=== PATIENT | female | born 2000 | race Caucasian/White ===

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

== ENCOUNTER 2018-02-17 09:04 | Emergency (ER) | END 2018-02-17 10:48 | disposition home or self-care (01) ==

== ENCOUNTER 2018-06-13 15:02 | Emergency (ER) | payer OTHER ==
[~2018-06-13] VITALS: Ht 167.6 cm; Wt 89.0 kg
[~2018-06-13 15:02] MED LIST: DIAZ5TAB PO; HYDR-4011 PO; IBUP-1542 PO; NAPR-985 PO; PANT40TA3 PO
[2018-06-13 15:29] VITALS: Ht 167.6 cm; Wt 89.0 kg
[2018-06-13] MEDS ORDERED: PRED20TA PO (16:41)
--- NOTE | 2018-06-13 16:43 | ERD ---
ER Documentation Chief Complaint Chief Complaint COUGH WITH DIFFIUCLTY CLEARING MUCOID, CHEST WALL PAIN X 5 DAYS HPI 18-year-old female is here complaining of cough since Monday for about 5 days. At that time she had chills and felt warm and now she overall feels better but still has cough that is worse at night and makes it difficult for her to sleep. She is been taking DayQuil and NyQuil which she does say helps a little bit. ROS All systems reviewed and are negative except as per history of present illness. Medications Home Meds Active Scripts Prednisone* (Prednisone*) 20 Mg Tab, 60 MG PO DAILY for 5 Days, TAB Prov:SHRAVAN GREEN PA-C 06/13/18 Diazepam* (Valium*) 5 Mg Tablet, 5 MG PO Q8, #10 TAB Prov:KATHY MILLER 02/17/18 Ibuprofen* (Motrin*) 600 Mg Tab, 600 MG PO Q6, #30 TAB Prov:KATHY MILLER 02/17/18 Hydrocodone/Acetaminophen ([place] 5-325 Tablet) 1 Each Tablet, 1 TAB PO Q8 PRN for PAIN, #12 TAB Prov:DARI TAYLOR MD 10/26/17 Pantoprazole* (Protonix*) 40 Mg Tablet., 40 MG PO DAILY, #20 TAB Prov:BRETT MASON PA-C 04/20/16 Pantoprazole* (Protonix*) 40 Mg Tablet., 40 MG PO DAILY, #20 TAB Prov:BRETT MASON PA-C 04/18/16 Naproxen* (Naprosyn*) 500 Mg Tablet, 500 MG PO BID PRN for PAIN AND/OR INFLAMMATION, #30 TAB Prov:GLENROY SCHAFER PA-C 12/29/15 Ibuprofen* (Ibuprofen*) 600 Mg Tablet, 600 MG PO Q6 for 7 Days, TAB Prov:KATHY MILLER 03/18/15 Allergies Allergies: Coded Allergies: No Known Allergy (Unverified , 06/13/18) PMhx/Soc History of Surgery: No Anesthesia Reaction: No Hx Neurological Disorder: No Hx Respiratory Disorders: Yes (asthma) Hx Cardiac Disorders: No Hx Psychiatric Problems: No Hx Miscellaneous Medical Probl: No Hx Alcohol Use: No Hx Substance Use: No Hx Tobacco Use: No Smoking Status: Never smoker FmHx Family History: No diabetes Physical Exam Vitals Vital Signs Date Temp Pulse Resp B/P (MAP) Pulse Ox O2 O2 Flow FiO2 Time Delivery Rate 06/13/18 98.4 85 18 131/61 100 15:29 (84) Physical Exam INITIAL VITAL SIGNS: Reviewed by me GENERAL: Awake, alert and oriented x 4, well appearing, nontoxic, speaking in full sentences. No acute distress HEAD: Atraumatic NECK: Supple. No masses. Full range of motion. No meningismus. No midline tenderness. EYES: EOMI. PERRL. EAR: No tenderness over the mastoids bilaterally. No exudates in the canals. TMs nonerythematous. NOSE: Normal nose. THROAT: No tonilar erythema or edema. No exudates. Uvula midline. No kissing tonsils. RESPIRATORY: Clear to auscultation bilaterally. Symmetric chest wall rise. No wheezing or rales. No accessory muscle use. Coughing CV: Regular rate and rhythm. No murmurs, rubs, or gallops. ABDOMEN: Soft, non-distended. Nontender. Negative [place]. Negative McBurneys point tenderness. No CVA tenderness bilaterally. No guarding. No rebound. Procedures/MDM Patient is here for bronchitis. I doubt she has pneumonia. She is afebrile well-appearing her lungs are clear. I do not think she requires antibiotics but did get her short course of prednisone. Patient counseled regarding my diagnostic impression and care plan. Prior to discharge all questions answered. Pt agrees with treatment plan and understands strict return precautions. Pt is instructed to follow up with primary care provider within 24-48 hours. Precautionary instructions provided including instructions to return to the ER if not improving or for any worsening or changing symptoms or concerns. Departure Diagnosis: Primary Impression: Cough Condition: Stable Patient Instructions: Bronchitis, No Antibiotic (Adult) Additional Instructions: Call your primary care doctor TOMORROW for an appointment during the next 1-2 days.See the doctor sooner or return here if your condition worsens before your appointment time. SHRAVAN GREEN PA-C Jun 13, 2018 16:43
[2018-06-13 17:03] VITALS: BP 125/59; PULSE 79; RESP 18
== END 2018-06-13 17:06 | disposition home or self-care (01) ==
LOC: FTE 15:02
DX: R05 Cough (principal); J45.909 Unspecified asthma, uncomplicated
CPT/HCPCS: 99283

== ENCOUNTER 2018-10-03 21:25 | Emergency (ER) | payer OTHER ==
[~2018-10-03] VITALS: Ht 162.6 cm; Wt 93.2 kg
[~2018-10-03 21:25] MED LIST changes: +PRED20TA PO
[2018-10-03 21:34] VITALS: Ht 162.6 cm; Wt 93.2 kg
--- NOTE | 2018-10-04 00:11 | ERD ---
ER Documentation Chief Complaint Chief Complaint BARONE and tingling on L side of body x 1 week HPI 18-year-old female, previously healthy, presents the emergency department, complaining of 1 week with persistent headache, described as throbbing, global, 7/10, associated with nausea, dizziness and a tingling sensation in the left upper and lower extremity. The patient denies fever, no chills, no blurry vision, no distal weakness. She reports taking naproxen for the pain without improvement of the symptoms. ROS All systems reviewed and are negative except as per history of present illness. Medications Home Meds Active Scripts Prednisone* (Prednisone*) 20 Mg Tab, 60 MG PO DAILY for 5 Days, TAB Prov:SHRAVAN GREEN PA-C 06/13/18 Diazepam* (Valium*) 5 Mg Tablet, 5 MG PO Q8, #10 TAB Prov:KATHY MILLER 02/17/18 Ibuprofen* (Motrin*) 600 Mg Tab, 600 MG PO Q6, #30 TAB Prov:KATHY MILLER 02/17/18 Hydrocodone/Acetaminophen ([place] 5-325 Tablet) 1 Each Tablet, 1 TAB PO Q8 PRN for PAIN, #12 TAB Prov:DARI TAYLOR MD 10/26/17 Pantoprazole* (Protonix*) 40 Mg Tablet., 40 MG PO DAILY, #20 TAB Prov:BRETT MASON PA-C 04/20/16 Pantoprazole* (Protonix*) 40 Mg Tablet.dr, 40 MG PO DAILY, #20 TAB Prov:BRETT MASON PA-C 04/18/16 Naproxen* (Naprosyn*) 500 Mg Tablet, 500 MG PO BID PRN for PAIN AND/OR INFLAMMATION, #30 TAB Prov:GLENROY SCHAFER PA-C 12/29/15 Ibuprofen* (Ibuprofen*) 600 Mg Tablet, 600 MG PO Q6 for 7 Days, TAB Prov:KATHY MILLER 03/18/15 Allergies Allergies: Coded Allergies: No Known Allergy (Unverified , 06/13/18) PMhx/Soc Medical and Surgical Hx: pt denies Medical Hx, pt denies Surgical Hx History of Surgery: No Anesthesia Reaction: No Hx Neurological Disorder: No Hx Respiratory Disorders: Yes (asthma) Hx Cardiac Disorders: No Hx Psychiatric Problems: No Hx Miscellaneous Medical Probl: No Hx Alcohol Use: No Hx Substance Use: No Hx Tobacco Use: No Smoking Status: Never smoker FmHx Family History: No diabetes, No coronary disease Physical Exam Vitals Vital Signs Date Temp Pulse Resp B/P (MAP) Pulse Ox O2 O2 Flow FiO2 Time Delivery Rate 10/03/18 99.7 106 20 142/73 98 21:34 (96) Physical Exam Const: No acute distress Head: Atraumatic Eyes: Normal Conjunctiva ENT: Normal External Ears, Nose and Mouth. Neck: Full range of motion. No meningismus. Resp: Clear to auscultation bilaterally Cardio: Regular rate and rhythm, no murmurs Abd: Soft, non tender, non distended. Normal bowel sounds Skin: No petechiae or rashes Back: No midline or flank tenderness Ext: No cyanosis, or edema Neur: Awake and alert Psych: Normal Mood and Affect Results 24 hrs Current Medications Medications Dose Sig/[place] Start Time Status Last (Trade) Ordered Route PRN Stop Time Admin Dose Reason Admin 650 mg ONCE ONCE 10/04/18 Acetaminophen PO 00:30 10/04/18 (Tylenol 00:31 Tab) Ibuprofen 600 mg ONCE ONCE 10/04/18 (Motrin) PO 00:30 10/04/18 00:31 Procedures/MDM Differential diagnosis include but not limited to: Classical migraine, sinusitis, visual corrective problems, side effects of medications, dehydration, electrolyte imbalance, endocrine/autoimmune medical condition, stress, anxiety, tension headache. Low suspicion for meningitis, LENS MOUNTER tumor, cerebrovascular event. Physical examination and clinical presentation consistent most likely with tension headache. During the ED course the patient remained stable, no new complaints. Results and clinical impression discussed with patient who agrees with management. The patient is stable to be treated outpatient and will be discharged home, some side effects of prescribed medications (headache, rash, nausea, vomiting, diarrhea, drowsiness, habituation, bleeding, hypertension, interactions with other medications) were reviewed. Follow up with the primary care provider in the next 48h has been recommended. If symptoms persist, worsen or new symptoms develop, then patient should return to the ED immediately. Instructions explained and given directly by me to the patient with acknowledgment and demonstrated understanding. Disclaimer: Inadvertent spelling and grammatical errors are likely due to EHR/dictation software use and do not reflect on the overall quality of patient care. Also, please note that the electronic time recorded on this note does not necessarily reflect the actual time of the patient encounter. Departure Diagnosis: Primary Impression: Headache Condition: Stable Patient Instructions: Self-Care for Headaches Additional Instructions: Thank you very much for allowing us to participate in your care. Your health and safety is our top priority at [facility]. The evaluation in the emergency department has been done to rule out an acute emergency. Chronic, msl-vcea-hjfniigevuq conditions may have not been evaluated; therefore, you need to follow up with a primary care provider in the next 48h. If symptoms persist, worsen or new symptoms develop, then patient should return to the ED immediately. Call your primary care doctor TOMORROW for an appointment during the next 2-4 days and bring all the information provided. Have prescriptions filled and follow precisely the directions on the label. If the symptoms get worse and your provider is unavailable, return to the Emergency Department immediately. DARI TAYLOR MD Oct 04, 2018 00:11
[2018-10-04] MEDS ORDERED: ABCC1C PO (00:17)
[2018-10-04] MEDS: IBUPROFEN 600 MG TAB PO ONE ×2 (00:27→00:30)
[2018-10-04] MEDS ORDERED: ACETAMINOPHEN 325 MG TAB PO ONE (00:30)
[2018-10-04 02:23] VITALS: BP 122/68; PULSE 68; RESP 16
== END 2018-10-04 02:24 | disposition home or self-care (01) ==
LOC: FTE 21:25
DX: R51 Headache (principal); J45.909 Unspecified asthma, uncomplicated
CPT/HCPCS: 70450; 81003; 81025; Z7502; Z7610

== ENCOUNTER 2018-10-27 14:10 | Emergency (ER) | payer OTHER ==
[~2018-10-27] VITALS: Ht 162.6 cm; Wt 94.0 kg
[~2018-10-27 14:10] MED LIST changes: +ABCC1C PO
[2018-10-27 14:12] VITALS: BP 135/82; PULSE 87; RESP 14; Ht 162.6 cm; Wt 94.0 kg
[2018-10-27] MEDS ORDERED: BEN25 PO (14:27)
[2018-10-27] MEDS ORDERED: PRED20TA PO (14:27)
[2018-10-27] MEDS ORDERED: DIPHENHYDRAMINE 25 MG CAP PO ONE (14:30)
[2018-10-27] MEDS ORDERED: predniSONE 20 MG TAB PO ONE (14:30)
--- NOTE | 2018-10-27 14:30 | ERD ---
ER Documentation Chief Complaint Chief Complaint Pt presents with generalized body since yesterday, no SOB reported. HPI 18-year-old female presents with generalized rash and itching on the trunk and extremities. Started yesterday. Patient is working at a summer camp. She was in the pool yesterday. She denies any new known foods, medications, known new exposures. She denies fevers, shortness of breath, additional symptoms. She denies previous allergies. ROS All systems reviewed and are negative except as per history of present illness. Medications Home Meds Active Scripts Prednisone* (Prednisone*) 20 Mg Tab, 40 MG PO DAILY for 3 Days, TAB Prov:PAULA COATS MD 10/27/18 Diphenhydramine Hcl* (Benadryl*) 25 Mg Cap, 25 MG PO Q6, #20 CAP Prov:PAULA COATS MD 10/27/18 Vpupkddmwfexd-Wokjkwhoqf-Ihglcppl-Codeine* (Fioricet w/Codeine*) 325MG-5 [id number] Cap, 1 CAP PO BID PRN for PAIN LEVEL 1-5, #10 CAP Prov:DARI TAYLOR MD 10/04/18 Prednisone* (Prednisone*) 20 Mg Tab, 60 MG PO DAILY for 5 Days, TAB Prov:SHRAVAN GREEN PA-C 06/13/18 Diazepam* (Valium*) 5 Mg Tablet, 5 MG PO Q8, #10 TAB Prov:KATHY MILLER 02/17/18 Ibuprofen* (Motrin*) 600 Mg Tab, 600 MG PO Q6, #30 TAB Prov:KATHY MILLER 02/17/18 Hydrocodone/Acetaminophen ([place] 5-325 Tablet) 1 Each Tablet, 1 TAB PO Q8 PRN for PAIN, #12 TAB Prov:DARI TAYLOR MD 10/26/17 Pantoprazole* (Protonix*) 40 Mg Tablet., 40 MG PO DAILY, #20 TAB Prov:BRETT MASON PA-C 04/20/16 Pantoprazole* (Protonix*) 40 Mg Tablet.dr, 40 MG PO DAILY, #20 TAB Prov:BRETT MASON PA-C 04/18/16 Naproxen* (Naprosyn*) 500 Mg Tablet, 500 MG PO BID PRN for PAIN AND/OR INFLAMMATION, #30 TAB Prov:GLENROY SCHAFER PA-C 12/29/15 Ibuprofen* (Ibuprofen*) 600 Mg Tablet, 600 MG PO Q6 for 7 Days, TAB Prov:KATHY MILLER 03/18/15 Allergies Allergies: Coded Allergies: No Known Allergy (Unverified , 06/13/18) PMhx/Soc History of Surgery: No Anesthesia Reaction: No Hx Neurological Disorder: No Hx Respiratory Disorders: Yes (asthma) Hx Cardiac Disorders: No Hx Psychiatric Problems: No Hx Miscellaneous Medical Probl: No Hx Alcohol Use: No Hx Substance Use: No Hx Tobacco Use: No FmHx Family History: No diabetes, No coronary disease, No other Physical Exam Vitals Vital Signs Date Temp Pulse Resp B/P (MAP) Pulse Ox O2 O2 Flow FiO2 Time Delivery Rate 10/27/18 98.0 87 14 135/82 98 14:12 (99) Physical Exam Const: No acute distress Head: Atraumatic Eyes: Normal Conjunctiva ENT: Normal External Ears, Nose and Mouth. Neck: Full range of motion. No meningismus. Resp: Clear to auscultation bilaterally Cardio: Regular rate and rhythm, no murmurs Abd: Soft, non tender, non distended. Normal bowel sounds Skin: No petechiae or purpura. Scattered urticarial raised lesions of various sizes on the trunk and extremities. No induration, streaking, vesicles. Back: No midline or flank tenderness Ext: No cyanosis, or edema Neur: Awake and alert Psych: Normal Mood and Affect Results 24 hrs Current Medications Medications Dose Sig/[place] Start Time Status Last (Trade) Ordered Route PRN Stop Time Admin Dose Reason Admin Prednisone 60 mg ONCE ONCE 10/27/18 (Prednisone) PO 14:30 10/27/18 14:31 25 mg ONCE ONCE 10/27/18 Diphenhydrami PO 14:30 ne HCl 10/27/18 14:31 (Benadryl) Procedures/MDM Patient presents with a nonspecific urticarial rash on the trunk and extremities without signs of anaphylaxis, cellulitis, purpura, life-threatening rashes. She likely has an allergic reaction of unspecified etiology. She will be treated empirically with short course of prednisone, Benadryl, further observation at home and return precautions for fevers, shortness of breath, new worsening symptoms. The patient was stable with no new complaints during the ER course. Clinically, there is no current evidence to suggest meningitis, sepsis, acute abdomen, pneumonia, stroke, acute coronary syndrome, pulmonary embolism, aortic dissection or any other emergent condition appearing to require further evaluation or hospitalization. Patient counseled regarding my diagnostic impression and care plan. Prior to discharge all questions answered. Pt agrees with treatment plan and understands strict return precautions. Pt is instructed to follow up with primary care provider within 24-48 hours. Precautionary ins tructions provided including instructions to return to the ER if not improving or for any worsening or changing symptoms or concerns. Disclaimer: Inadvertent spelling and grammatical errors are likely due to EHR/dictation software use and do not reflect on the overall quality of patient care. Also, please note that the electronic time recorded on this note does not necessarily reflect the actual time of the patient encounter. Departure Diagnosis: Primary Impression: Urticaria Condition: Stable Patient Instructions: Hives Additional Instructions: Suspect nonspecific allergy. Recommend avoidance of sun. Recheck for fevers, shortness of breath, no improvement in symptoms, new or worsening symptoms. PAULA COATS MD Oct 27, 2018 14:30
[2018-10-27] MEDS ORDERED: CETI10TA19 PO (14:55)
== END 2018-10-27 15:12 | disposition home or self-care (01) ==
LOC: FTE 14:10
DX: L50.9 Urticaria, unspecified (principal); J45.909 Unspecified asthma, uncomplicated
CPT/HCPCS: J7512; Z7502; Z7610; 99283

== ENCOUNTER 2018-10-31 20:28 | Emergency (ER) | payer OTHER ==
[~2018-10-31] VITALS: Ht 162.6 cm; Wt 96.0 kg
[~2018-10-31 20:28] MED LIST changes: +BEN25 PO; +CETI10TA19 PO
[2018-10-31 20:29] VITALS: BP 152/80; PULSE 94; RESP 18; Ht 162.6 cm; Wt 96.0 kg
--- NOTE | 2018-10-31 22:57 | ERD ---
ER Documentation Chief Complaint Chief Complaint FEELS LIKE THROAT IS CLOSING HPI This is a 18-year-old female presents emergency department with complaints of throat closure, allergic symptoms since Monday. Stated that she was here last Monday for the same symptoms and was prescribed prednisone. LMP: 09/07/2018. Denies headache, head injury, loss of consciousness, dizziness, neck pain, neck stiffness, throat pain, difficulty swallowing, difficulty breathing lying flat, shoulder pain, chest pain, back pain, abdominal pain, nausea, vomiting, constipation, diarrhea, urinary symptoms, or possibility being , loss of bowel and bladder control, trauma, injury, falls, difficulty walking due to pain, numbness or tingling sensation, calf pain, recent travel, recent major surgery in the last 3 weeks, calf pain, recent long travel, recent exposure to any illness, recent antibiotic use in the last 3 months, fever, chills, seizures. Past medical history: Denies. Surgical history: Denies. Social: Denies smoking, use of alcoholic beverages, use of illegal drugs. ROS All systems reviewed and are negative except as per history of present illness. Medications Home Meds Active Scripts Famotidine* (Pepcid*) 20 Mg Tablet, 20 MG PO DAILY for 30 Days, TAB Prov:IBETH VALERO 10/31/18 Diphenhydramine Hcl* (Benadryl*) 25 Mg Cap, 25 MG PO Q6 PRN for ITCHING/RASH, #30 TAB Prov:IBETH VALERO 10/31/18 Loratadine* (Loratadine*) 10 Mg Tablet, 10 MG PO DAILY, #30 TAB Prov:IBETH VALERO 10/31/18 Ondansetron Hcl* (Zofran*) 4 Mg Tablet, 4 MG PO Q8H PRN for NAUSEA AND/OR VOMITING, #30 TAB Prov:IBETH VALERO 10/31/18 Prednisone* (Prednisone*) 20 Mg Tab, 40 MG PO DAILY for 4 Days, TAB Prov:IBETH VALERO 10/31/18 Cetirizine Hcl* (Cetirizine Hcl*) 10 Mg Tablet, 10 MG PO DAILY, #15 TAB Prov:PAULA COATS MD 10/27/18 Prednisone* (Prednisone*) 20 Mg Tab, 40 MG PO DAILY for 3 Days, TAB Prov:PAULA COATS MD 10/27/18 Diphenhydramine Hcl* (Benadryl*) 25 Mg Cap, 25 MG PO Q6, #20 CAP Prov:PAULA COATS MD 10/27/18 Rdakoslzmxrcy-Khijbgfyxc-Uhtxsfuf-Codeine* (Fioricet w/Codeine*) [id number]-30MG Cap, 1 CAP PO BID PRN for PAIN LEVEL 1-5, #10 CAP Prov:DARI TAYLOR MD 10/04/18 Prednisone* (Prednisone*) 20 Mg Tab, 60 MG PO DAILY for 5 Days, TAB Prov:SHRAVAN GREEN PA-C 06/13/18 Diazepam* (Valium*) 5 Mg Tablet, 5 MG PO Q8, #10 TAB Prov:KATHY MILLER 02/17/18 Ibuprofen* (Motrin*) 600 Mg Tab, 600 MG PO Q6, #30 TAB Prov:KATHY MILLER 02/17/18 Hydrocodone/Acetaminophen ([place] 5-325 Tablet) 1 Each Tablet, 1 TAB PO Q8 PRN for PAIN, #12 TAB Prov:DARI TAYLOR MD 10/26/17 Pantoprazole* (Protonix*) 40 Mg Tablet.dr, 40 MG PO DAILY, #20 TAB Prov:BRETT MASON PA-C 04/20/16 Pantoprazole* (Protonix*) 40 Mg Tablet.dr, 40 MG PO DAILY, #20 TAB Prov:BRETT MASON PA-C 04/18/16 Naproxen* (Naprosyn*) 500 Mg Tablet, 500 MG PO BID PRN for PAIN AND/OR INFLAMMATION, #30 TAB Prov:GLENROY SCHAFER PA-C 12/29/15 Ibuprofen* (Ibuprofen*) 600 Mg Tablet, 600 MG PO Q6 for 7 Days, TAB Prov:KATHY MILLER 03/18/15 Allergies Allergies: Coded Allergies: No Known Allergy (Unverified , 06/13/18) PMhx/Soc Medical and Surgical Hx: pt denies Medical Hx, pt denies Surgical Hx History of Surgery: No Anesthesia Reaction: No Hx Neurological Disorder: No Hx Respiratory Disorders: Yes (asthma) Hx Cardiac Disorders: No Hx Psychiatric Problems: No Hx Miscellaneous Medical Probl: No Hx Alcohol Use: No Hx Substance Use: No Hx Tobacco Use: No Smoking Status: Never smoker Physical Exam Vitals Vital Signs Date Temp Pulse Resp B/P (MAP) Pulse Ox O2 O2 Flow FiO2 Time Delivery Rate 10/31/18 99.5 94 18 152/80 97 20:29 (104) Physical Exam Const: No acute distress Head: Atraumatic Eyes: Normal Conjunctiva. No conjunctival injection. ENT: Normal External Ears, Nose and Mouth. Bilateral ear: TM is not erythematous. No bleeding. No discharge. No hearing loss. No mastoid tenderness. Nose: No nasal flaring. No signs of obstruction. Throat/Lips: No lip swelling. No tongue swelling. Able to control tongue movement. No drooling. Uvula is in midline and non-displaced. Tonsils are + 1 with no redness and no exudates. Tolerating secretions. Patent airway. Speaks full and clear sentences. No tripoding. Neck: Full range of motion. No meningismus. Nuchal rigidity. No signs of meningeal irritation. Resp: Clear to auscultation bilaterally. No retraction noted. No accessory muscle use in breathing. Cardio: Regular rate and rhythm, no murmurs. Abd: Soft, non tender, non distended. Normal bowel sounds. No abdominal tenderness. Skin: No petechiae. Generalized hives. No vesicular lesions. Back: No midline or flank tenderness Ext: No cyanosis, or edema Neur: Awake and alert. No neurological deficit.. Psych: Normal Mood and Affect Results 24 hrs Laboratory Tests Test 10/31/18 22:55 POC Beta HCG, Qualitative NEGATIVE Current Medications Medications Dose Sig/[place] Start Time Status Last (Trade) Ordered Route PRN Stop Time Admin Dose Reason Admin 10 mg ONCE ONCE 10/31/18 DC 10/31/18 Dexamethasone IM 23:00 10/31/18 23:38 (Decadron) 23:01 Famotidine 40 mg ONCE ONCE 10/31/18 DC 10/31/18 (Pepcid) PO 23:00 10/31/18 23:38 23:01 Ondansetron 4 mg ONCE STAT 10/31/18 DC 10/31/18 HCl (Zofran ODT 22:59 10/31/18 23:38 Odt) 23:00 25 mg ONCE ONCE 10/31/18 DC 10/31/18 Diphenhydrami PO 23:00 10/31/18 23:38 ne HCl 23:01 (Benadryl) Procedures/MDM Diagnostic tests: Clinical exam. Treatment: Dexamethasone. Benadryl. Zofran. Pepcid. Re-evaluation: Hives has decreased tremendously. No accessory muscle use in breathing. Lung sounds are clear to auscultation. Stated that she feels much better this time and that she is ready to go home. Stated that she is comfortable to go home. Differential diagnosis I have low suspicion for anaphylactic shock, anaphylaxis, Hu-Adán syndrome, Final diagnosis: Allergic reaction. Prescription: Pepcid. Loratadine. Benadryl. Follow-up with PCP in the next 24-48 hours. PCP to do an allergy test for environmental and food. PCP to refer patient to patient financial services specialist in the next 3 to 5 days. Come back here in the emergency department for any new symptoms or any worsening symptoms. All questions and concerns were answered. Patient and family members verbalized understanding and agreed with plan of care. Hemodynamically stable on discharge. Departure Diagnosis: Primary Impression: Allergic reaction Condition: Stable Additional Instructions: Follow-up with PCP in the next 24-48 hours. PCP to do an allergy test for environmental and food. PCP to refer patient to patient financial services specialist in the next 3 to 5 days. Come back here in the emergency department for any new symptoms or any worsening symptoms. IBETH VALERO Oct 31, 2018 22:57
[2018-10-31] MEDS ORDERED: ONDANSETRON (ODT) 4 MG TAB ODT STA (22:59)
[2018-10-31] MEDS ORDERED: DIPHENHYDRAMINE 25 MG CAP PO ONE (23:00)
[2018-10-31] MEDS ORDERED: DEXAMETHASONE 10 MG/ML 1 ML INJ IM ONE (23:00)
[2018-10-31] MEDS ORDERED: FAMOTIDINE 20 MG TAB PO ONE (23:00)
[2018-10-31] MEDS ORDERED: PRED20TA PO (23:27)
[2018-10-31] MEDS ORDERED: ONDA4TAB8 PO (23:27)
[2018-10-31] MEDS ORDERED: LORA10TA3 PO (23:27)
[2018-10-31] MEDS ORDERED: BEN25 PO (23:28)
[2018-10-31] MEDS ORDERED: FAMO-96 PO (23:29)
== END 2018-10-31 23:43 | disposition home or self-care (01) ==
LOC: FTE 20:28
DX: R09.89 Other specified symptoms and signs involving the circulatory and respiratory systems (principal); J45.909 Unspecified asthma, uncomplicated
CPT/HCPCS: 81025; J1100; Z7610; 96372